=== PATIENT | male | born 1950 | race Caucasian/White ===

== ENCOUNTER 2019-08-31 15:20 | Inpatient (IN) | payer MEDICARE, OTHER ==
[~2019-08-31] VITALS: Ht 165.1 cm; Wt 84.7 kg
--- NOTE | 2019-08-31 15:43 | NUR ---
speech and language clinician: Pt to ed room 19 in NAD from lobby at this time
--- NOTE | 2019-08-31 15:45 | NUR ---
pt to room 19 from triage
[2019-08-31] MEDS ORDERED: SODIUM CHLORIDE FLUSH 10ML SYR IVF ONE (16:30)
--- NOTE | 2019-08-31 16:46 | NUR ---
MD IS AT THE BEDSIDE TO ASSESS
[2019-08-31 17:13] LABS: ALANINE AMINOTRANSFERASE 61 U/L (12-78); ALBUMIN 1.5 g/dL (3.4-5.0); ANION GAP 11 mmol/L (5-15); CALCIUM 8.7 mg/dL (8.5-10.1); CHLORIDE 106 mmol/L (98-107); CREATININE 0.97 mg/dL (0.7-1.3)
[2019-08-31 17:17] LABS: ALKALINE PHOSPHATASE 803 U/L (45-117); TROPONIN I < 0.015 ng/mL (0.000-0.045)
[2019-08-31 17:58] LABS: MEAN CORPUSCULAR HEMOGLOBIN 27.3 pg (27.5-34.5); MEAN CORPUSCULAR HGB CONC 31.7 g/dL (33.2-36.2); MEAN CORPUSCULAR VOLUME 86.1 fL (81-97); MEAN PLATELET VOLUME 8.8 fL (7.4-10.4); PLATELET COUNT 306 x10^3/uL (130-400); RED BLOOD COUNT 3.12 x10^6/uL (4.38-5.82); RED CELL DISTRIBUTION WIDTH 23.3 % (9.4-14.8)
--- NOTE | 2019-08-31 17:58 | NUR ---
NO PIV IN PLACE. IMPLANT A PORT IN LEFT CHEST FOR EMERGENCY ACCESS.
[2019-08-31] MEDS ORDERED: SODIUM CHLORIDE 0.9% 1,000ML IVBOLUS ONE (18:00)
[2019-08-31 18:19] LABS: MD YES
[2019-08-31 18:24] LABS: BAND#(MANUAL) 0.54 x10^3/uL; BANDS%(MANUAL) 3 % (0-7); EOS#(MANUAL) 0.18 x10^3/uL (0.0-0.4); EOS% (MANUAL) 1 % (1-7); LYMPH#(MANUAL) 0.54 x10^3/uL (1-3.4); LYMPHS% (MANUAL) 3 % (22-44); MONOS#(MANUAL) 1.79 x10^3/uL (0.3-2.7); MONOS% (MANUAL) 10 % (2-9); SEG#(MANUAL) 14.86 x10^3/uL (1.8-6.8); SEGS% (MANUAL) 83 % (42-75)
[2019-08-31 18:25] LABS: ANISOCYTOSIS 1+; POLYCHROMASIA 1+
[2019-08-31 18:26] LABS: <PLATELET ESTIMATE> ADEQUATE; <PLT MORPHOLOGY> NORMAL PLT MORPH
[2019-08-31 18:51] LABS: BILIRUBIN, DIRECT 5.6 mg/dL (0.1-0.2)
[2019-08-31 18:52] LABS: BILIRUBIN,TOTAL 6.6 mg/dL (0.2-1.0)
--- NOTE | 2019-08-31 19:02 | NUR ---
report from riya diana
--- NOTE | 2019-08-31 19:10 | NUR ---
meal tray ordered.
--- NOTE | 2019-08-31 19:11 | NUR ---
YASMIN (RN) IS ASSUMING CARE OF THIS PT AT THIS TIME. SBAR REPORT WAS EXCHANGED AT THE BEDSIDE.
[2019-08-31] MEDS ORDERED: LIDODERM 5% PATCH TD PRN (19:30)
[2019-08-31] MEDS: SODIUM CHLORIDE 0.9% 1,000 ML IV SCH ×2 (19:30→22:32)
[2019-08-31] MEDS ORDERED: DIPHENHYDRAMINE 25 MG CAPSULE PO PRN (19:30)
[2019-08-31] MEDS ORDERED: ONDANSETRON 2MG/ML, 2ML IVPush PRN (19:30)
[2019-08-31] MEDS: LACTULOSE 10 GM/15 ML UDC PO SCH (21:36)
[2019-08-31] MEDS: ENOXAPARIN 40 MG/0.4 ML SQ SCH (21:36)
[2019-08-31 22:04] LABS: MICROSCOPIC INDICATED
[2019-08-31 22:15] LABS: CULTURE INDICATED? YES
[2019-09-01 01:54] VITALS: BP 107/71
[2019-09-01 06:54] LABS: MEAN CORPUSCULAR HEMOGLOBIN 28.4 pg (27.5-34.5); MEAN CORPUSCULAR HGB CONC 32.8 g/dL (33.2-36.2); MEAN CORPUSCULAR VOLUME 86.5 fL (81-97); MEAN PLATELET VOLUME 8.5 fL (7.4-10.4); PLATELET COUNT 251 x10^3/uL (130-400); RED BLOOD COUNT 2.79 x10^6/uL (4.38-5.82); RED CELL DISTRIBUTION WIDTH 23.1 % (9.4-14.8)
[2019-09-01 06:58] LABS: ALANINE AMINOTRANSFERASE 59 U/L (12-78); ALBUMIN 1.3 g/dL (3.4-5.0); ANION GAP 9 mmol/L (5-15); CALCIUM 8.1 mg/dL (8.5-10.1); CHLORIDE 115 mmol/L (98-107); CREATININE 0.66 mg/dL (0.7-1.3)
[2019-09-01 07:00] LABS: ALKALINE PHOSPHATASE 681 U/L (45-117); BILIRUBIN,TOTAL 5.7 mg/dL (0.2-1.0)
[2019-09-01 07:31] VITALS: BP 97/62
[2019-09-01 07:58] LABS: MD YES
[2019-09-01] MEDS ORDERED: ACETAMINOPHEN 325 MG TABLET PO PRN (08:30)
[2019-09-01 08:58] LABS: ANISOCYTOSIS 1+; METAMYELOCYTES# (MANUAL) 0.27 x10^3/uL (0-0); METAMYELOCYTES% (MANUAL) 2 % (0-1); MONOS% (MANUAL) 6 % (2-9); SEG#(MANUAL) 12.33 x10^3/uL (1.8-6.8); SEGS% (MANUAL) 92 % (42-75)
[2019-09-01 08:59] LABS: <PLATELET ESTIMATE> ADEQUATE; <PLT MORPHOLOGY> NORMAL PLT MORPH; MICROCYTOSIS 1+; ROULEAUX 1+
[2019-09-01] MEDS: LACTULOSE 10 GM/15 ML UDC PO SCH ×2 (09:25→19:35)
[2019-09-01 13:49] VITALS: BP 122/75
[2019-09-01] MEDS: ENOXAPARIN 40 MG/0.4 ML SQ SCH (19:35)
[2019-09-01 19:58] VITALS: BP 121/72
[2019-09-01] MEDS: SODIUM CHLORIDE 0.9% 1,000 ML IV SCH (22:56)
[2019-09-02 01:16] VITALS: BP 128/74
[2019-09-02 05:23] LABS: MEAN CORPUSCULAR HEMOGLOBIN 27.9 pg (27.5-34.5); MEAN CORPUSCULAR HGB CONC 32.1 g/dL (33.2-36.2); MEAN CORPUSCULAR VOLUME 86.8 fL (81-97); MEAN PLATELET VOLUME 8.4 fL (7.4-10.4); PLATELET COUNT 268 x10^3/uL (130-400); RED BLOOD COUNT 2.78 x10^6/uL (4.38-5.82); RED CELL DISTRIBUTION WIDTH 23.1 % (9.4-14.8)
[2019-09-02 05:34] LABS: ALBUMIN 1.2 g/dL (3.4-5.0); ANION GAP 9 mmol/L (5-15); CALCIUM 8.2 mg/dL (8.5-10.1); CHLORIDE 117 mmol/L (98-107)
[2019-09-02 05:47] LABS: MD YES
[2019-09-02 05:49] LABS: ANISOCYTOSIS 1+; BAND#(MANUAL) 0.56 x10^3/uL; BANDS%(MANUAL) 4 % (0-7); EOS#(MANUAL) 0.28 x10^3/uL (0.0-0.4); EOS% (MANUAL) 2 % (1-7); LYMPH#(MANUAL) 0.83 x10^3/uL (1-3.4); LYMPHS% (MANUAL) 6 % (22-44); MONOS#(MANUAL) 0.83 x10^3/uL (0.3-2.7); MONOS% (MANUAL) 6 % (2-9); SEGS% (MANUAL) 82 % (42-75)
[2019-09-02 05:50] LABS: POLYCHROMASIA 1+; SPHEROCYTES 1+
[2019-09-02 05:51] LABS: <PLATELET ESTIMATE> ADEQUATE; <PLT MORPHOLOGY> NORMAL PLT MORPH; MICROCYTOSIS 1+
[2019-09-02 05:55] LABS: % IRON SATURATION 17 % (20-55); ALANINE AMINOTRANSFERASE 60 U/L (12-78); ALKALINE PHOSPHATASE 691 U/L (45-117); BILIRUBIN,TOTAL 5.1 mg/dL (0.2-1.0); IRON LEVEL 24 mcg/dL (65-175); TOTAL IRON BINDING CAPACITY 143 mcg/dL (250-450); TOTAL PROTEIN 5.8 g/dL (6.4-8.2)
[2019-09-02] MEDS: LACTULOSE 10 GM/15 ML UDC PO SCH ×2 (08:44→20:14)
[2019-09-02] MEDS: FERROUS SULFATE 325 MG TABLET PO SCH (08:44)
[2019-09-02] MEDS: SODIUM CHLORIDE 0.9% 1,000 ML IV SCH ×2 (08:48→20:14)
[2019-09-02 09:00] VITALS: BP 126/67
[2019-09-02 12:42] VITALS: BP 126/78
[2019-09-02 19:02] VITALS: BP 134/76
[2019-09-02] MEDS: ENOXAPARIN 40 MG/0.4 ML SQ SCH (20:14)
[2019-09-03 00:15] VITALS: BP 153/84
[2019-09-03] MEDS: SODIUM CHLORIDE 0.9% 1,000 ML IV SCH ×2 (04:33→17:37)
[2019-09-03 05:35] LABS: MEAN CORPUSCULAR HEMOGLOBIN 27.9 pg (27.5-34.5); MEAN CORPUSCULAR HGB CONC 31.6 g/dL (33.2-36.2); MEAN CORPUSCULAR VOLUME 88.3 fL (81-97); MEAN PLATELET VOLUME 8.2 fL (7.4-10.4); PLATELET COUNT 242 x10^3/uL (130-400); RED BLOOD COUNT 2.93 x10^6/uL (4.38-5.82); RED CELL DISTRIBUTION WIDTH 23.6 % (9.4-14.8)
[2019-09-03 05:57] LABS: MD YES
[2019-09-03 05:58] LABS: BAND#(MANUAL) 0.12 x10^3/uL; BANDS%(MANUAL) 1 % (0-7); BASOS#(MANUAL) 0.12 x10^3/uL (0-0.1); BASOS% (MANUAL) 1 % (0-1); EOS#(MANUAL) 0.12 x10^3/uL (0.0-0.4); EOS% (MANUAL) 1 % (1-7); LYMPH#(MANUAL) 0.36 x10^3/uL (1-3.4); LYMPHS% (MANUAL) 3 % (22-44); MONOS#(MANUAL) 0.71 x10^3/uL (0.3-2.7); MONOS% (MANUAL) 6 % (2-9); NRBC % (MANUAL) 1 % (0-1); SEG#(MANUAL) 10.47 x10^3/uL (1.8-6.8); SEGS% (MANUAL) 88 % (42-75)
[2019-09-03 05:59] LABS: ANISOCYTOSIS 1+; HYPOCHROMIA 1+; POLYCHROMASIA 1+
[2019-09-03 06:00] LABS: MICROCYTOSIS 1+
[2019-09-03 06:02] LABS: <PLATELET ESTIMATE> ADEQUATE; <PLT MORPHOLOGY> NORMAL PLT MORPH
[2019-09-03 07:12] VITALS: BP 135/72
[2019-09-03] MEDS: LACTULOSE 10 GM/15 ML UDC PO SCH ×2 (08:04→19:57)
[2019-09-03 13:37] VITALS: BP 129/80
[2019-09-03 19:13] VITALS: BP 144/82
[2019-09-03] MEDS: ENOXAPARIN 40 MG/0.4 ML SQ SCH (19:57)
[2019-09-04 00:35] VITALS: BP 131/78
[2019-09-04 05:03] LABS: MEAN CORPUSCULAR HEMOGLOBIN 27.8 pg (27.5-34.5); MEAN CORPUSCULAR HGB CONC 31.7 g/dL (33.2-36.2); MEAN CORPUSCULAR VOLUME 87.7 fL (81-97); MEAN PLATELET VOLUME 8.2 fL (7.4-10.4); PLATELET COUNT 247 x10^3/uL (130-400); RED BLOOD COUNT 2.92 x10^6/uL (4.38-5.82); RED CELL DISTRIBUTION WIDTH 24.5 % (9.4-14.8)
[2019-09-04 05:58] LABS: MD YES
[2019-09-04 05:59] LABS: ANISOCYTOSIS 1+; BAND#(MANUAL) 0.22 x10^3/uL; BANDS%(MANUAL) 2 % (0-7); HYPOCHROMIA 1+; LYMPH#(MANUAL) 0.78 x10^3/uL (1-3.4); LYMPHS% (MANUAL) 7 % (22-44); MONOS#(MANUAL) 0.78 x10^3/uL (0.3-2.7); MONOS% (MANUAL) 7 % (2-9); POLYCHROMASIA 1+; SEG#(MANUAL) 9.32 x10^3/uL (1.8-6.8); SEGS% (MANUAL) 84 % (42-75)
[2019-09-04 06:00] LABS: <PLATELET ESTIMATE> ADEQUATE; <PLT MORPHOLOGY> NORMAL PLT MORPH
[2019-09-04 07:12] VITALS: BP 133/79
[2019-09-04] MEDS: LACTULOSE 10 GM/15 ML UDC PO SCH ×2 (09:25→20:50)
[2019-09-04] MEDS: SODIUM CHLORIDE 0.9% 1,000 ML IV SCH (10:08)
[2019-09-04] MEDS: FERROUS SULFATE 325 MG TABLET PO SCH (10:08)
[2019-09-04] MEDS ORDERED: ACET325T26 PO (10:39)
[2019-09-04] MEDS ORDERED: LACT10SO24 PO (10:39)
[2019-09-04] MEDS ORDERED: FERR-51 PO (10:39)
[2019-09-04] MEDS ORDERED: LEUP3.75 SC (10:42)
[2019-09-04 12:49] VITALS: BP 116/71
[2019-09-04 19:08] VITALS: BP 120/79
[2019-09-04] MEDS: ENOXAPARIN 40 MG/0.4 ML SQ SCH (20:50)
[2019-09-04 23:30] LABS: CULTURE INDICATED? YES; MICROSCOPIC INDICATED
[2019-09-05 01:11] VITALS: BP 108/56
[2019-09-05] MEDS: SODIUM CHLORIDE 0.9% 1,000 ML IV SCH ×2 (04:50→19:38)
[2019-09-05 07:11] VITALS: BP 122/73
[2019-09-05] MEDS: methylPREDNISolone SOD SUCC 125 MG/2 ML IVPush SCH ×2 (09:42→17:41)
[2019-09-05] MEDS: LACTULOSE 10 GM/15 ML UDC PO SCH ×2 (09:42→19:38)
[2019-09-05 13:39] VITALS: BP 138/84
[2019-09-05 19:00] VITALS: BP 128/69
[2019-09-05] MEDS: ENOXAPARIN 40 MG/0.4 ML SQ SCH (19:38)
[2019-09-06] MEDS: methylPREDNISolone SOD SUCC 125 MG/2 ML IVPush SCH ×2 (00:38→08:05)
[2019-09-06 01:15] VITALS: BP 147/74
[2019-09-06 07:54] VITALS: BP 138/72
[2019-09-06] MEDS: LACTULOSE 10 GM/15 ML UDC PO SCH (08:05)
[2019-09-06] MEDS: FERROUS SULFATE 325 MG TABLET PO SCH (08:05)
[2019-09-06 12:05] VITALS: BP 147/67
[2019-09-06] MEDS: SODIUM CHLORIDE 0.9% 1,000 ML IV SCH (14:10)
== END 2019-09-06 14:40 | disposition hospice, home (50) | DRG 444 ==
LOC: ED 17:57 → EDIP 18:29 → 4NW 20:05
PROVIDERS: ADMIT Family Medicine; ATTEND Family Medicine
PROC: 0T9B70Z Drainage of Bladder with Drainage Device, Via Natural or Artificial Opening (ICD-10-PCS; principal; 2019-08-31)
DX: K83.1 Obstruction of bile duct (principal); E43 Unspecified severe protein-calorie malnutrition; C18.9 Malignant neoplasm of colon, unspecified; C78.7 Secondary malignant neoplasm of liver and intrahepatic bile duct; R17 Unspecified jaundice; E87.2 Acidosis; E86.0 Dehydration; C61 Malignant neoplasm of prostate; D50.9 Iron deficiency anemia, unspecified; D63.8 Anemia in other chronic diseases classified elsewhere; D72.829 Elevated white blood cell count, unspecified; I10 Essential (primary) hypertension; N48.89 Other specified disorders of penis; Z80.42 Family history of malignant neoplasm of prostate; Z68.31 Body mass index [BMI] 31.0-31.9, adult
CPT/HCPCS: 36415; 71045; 74181; 76700; 80048; 80053; 80074; 81001; 82040; 82140; 82247; 82248; 82378; 83540; 83550; 83605; 83690; 84075; 84153; 84450; 84460; 84484; 85025; 86850; 86900; 87040; 87086; 93005; 99285; G0378; J1650; J2930; J7030